=== PATIENT | male | born 1955 | race Caucasian/White ===

== ENCOUNTER → 2024-11-29 11:21 | Outpatient (REF) | payer BC, SELFPAY | LOC: HWRCS 11:21 | PROVIDERS: ATTENDING PHYSICIAN Student in an Organized Health Care Education/Training Program; FAMILY PHYSICIAN Internal Medicine | DX: I25.10 Atherosclerotic heart disease of native coronary artery without angina pectoris (principal) | CPT/HCPCS: 93306 ==